=== PATIENT | male | born 1960 ===

== ENCOUNTER 2016-07-30 09:17 | Outpatient (CLI) | payer BC ==
--- NOTE | 2016-07-30 14:29 | Magnetic Resonance Report ---
MRI LUMBAR SPINE WITHOUT CONTRAST: 07/30/16 CLINICAL: Bilateral sciatica. TECHNIQUE: Sagittal and axial T1 and T2, and sagittal STIR sequences a 1.5 Bessie magnet. FINDINGS: Normal vertebral body height, alignment and disc spaces. Normal marrow signal. Decreased T2 disc signal at multiple levels most pronounced at L5-S1. The conus medullaris is normal and terminates at L1. L1-2: Intact. L2-3: Small left paracentral focal disc protrusion with extrusion of disc material superiorly beneath the posterior longitudinal ligament. The extruded disc material extends to the superior aspect of the L2 vertebral body. Mild narrowing of the left proximal neural foramen. L3-4: Small left paracentral focal disc protrusion. Bilateral facet hypertrophy and moderate bilateral neural foraminal narrowing, greater on the left than the right. L4-5: Moderate circumferential disc bulge and moderately large focal central disc protrusion. Bilateral facet hypertrophy and moderate bilateral neural foraminal narrowing. L5-S1: Central and left paracentral annular tear and small focal central disc protrusion. Bilateral facet hypertrophy and moderate bilateral neural foraminal narrowing. IMPRESSION: Multilevel degenerative disc disease with disc protrusions and neural foraminal narrowing at multiple levels.
== END 2016-07-30 09:18 | disposition home or self-care (01) ==
LOC: SPVIMAG 09:17
PROVIDERS: ATTEND Physical Medicine & Rehabilitation
DX: M54.16 Radiculopathy, lumbar region (principal)
CPT/HCPCS: 72148